=== PATIENT | female | born 1995 | race Caucasian/White ===

== ENCOUNTER 2019-02-10 14:00 | Inpatient (IN) | payer MEDICAID ==
[~2019-02-10] VITALS: Ht 165.1 cm; Wt 116.1 kg
[2019-02-10] MEDS ORDERED: RISP2 PO (15:58)
[2019-02-10] MEDS ORDERED: RISP4 PO (15:58)
[2019-02-10] MEDS ORDERED: LORazepam 2 MG TABLET PO PRN (16:30)
[2019-02-10] MEDS ORDERED: HALOPERIDOL 5 MG TABLET PO PRN (16:30)
[2019-02-10 16:41] VITALS: BP 134/90
[2019-02-10] MEDS ORDERED: PNEUMOCOCCAL VACCINE POLYVALENT 0.5 ML VIAL [PPSV23] IM ONE (17:15)
[2019-02-10 17:27] VITALS: BP 133/73
[2019-02-10] MEDS ORDERED: LOPERAMIDE HCL 2 MG CAPSULE PO PRN (19:00)
[2019-02-10] MEDS ORDERED: DOCUSATE SODIUM 100 MG CAPSULE PO PRN (19:00)
[2019-02-10] MEDS ORDERED: MAG HYDROX/AL HYDROX/SIMETH ES 30 ML SUSPENSION UDCUP PO PRN (19:00)
[2019-02-10] MEDS ORDERED: MAGNESIUM HYDROXIDE SUSPENSION 30 ML UDCUP PO PRN (19:00)
[2019-02-10] MEDS ORDERED: IBUPROFEN 400 MG TABLET PO PRN (19:00)
[2019-02-10] MEDS ORDERED: PETROLATUM,WHITE 28 GM JELLY TP PRN (19:00)
[2019-02-10] MEDS ORDERED: CloNIDine HCL 0.1 MG TABLET PO PRN (19:00)
[2019-02-10] MEDS ORDERED: ACETAMINOPHEN 325 MG TABLET PO PRN (19:00)
[2019-02-10] MEDS ORDERED: GuaiFENesin/D-METHORPHAN [SUGAR-FREE] 200-20MG/10 ML SYRUP UDCUP PO PRN (19:00)
[2019-02-10] MEDS ORDERED: ONDANSETRON HCL 4 MG TABLET PO PRN (19:00)
[2019-02-10] MEDS ORDERED: NICOTINE 14 MG/24 HOUR PATCH TD PRN (19:00)
[2019-02-10] MEDS: ZOLPIDEM TARTRATE 10 MG TABLET PO PRN (21:11)
[2019-02-11 00:46] VITALS: BP 122/83
[2019-02-11 08:09] LABS: BASOPHILS % (AUTO) 0.3 % (0.0-2.0); HEMOGLOBIN 13.3 g/dL (12.0-16.0); LYMPHOCYTES # (AUTO) 1.5 K/uL (1.0-4.8); LYMPHOCYTES % (AUTO) 17.7 % (22.0-44.0); MEAN CORPUSCULAR HEMOGLOBIN 29.3 pg (26.0-34.0); MEAN CORPUSCULAR HGB CONC 32.3 G/dL (31.0-37.0); MEAN CORPUSCULAR VOLUME 91 fL (80-100); MONOCYTES # (AUTO) 0.7 K/uL (0.1-1.0); MONOCYTES % (AUTO) 8.7 % (2.0-9.0); NEUTROPHILS # (AUTO) 5.9 K/uL (1.8-7.7); NEUTROPHILS % (AUTO) 71.3 % (40.0-70.0); PLATELET COUNT (AUTO) 289 K/uL (150-450); RED BLOOD CELL COUNT(AUTO) 4.52 MIL/uL (4.00-5.20); RED CELL DISTRIBUTION WIDTH 13.7 % (11.5-14.5)
[2019-02-11 08:13] VITALS: BP 116/63
[2019-02-11 08:33] LABS: HEMOGLOBIN A1C 5.7 % (4.5-6.2)
[2019-02-11 08:41] LABS: ALANINE AMINOTRANSFERASE 16 U/L (12-78); ALBUMIN 3.5 g/dL (3.4-5.0); ALKALINE PHOSPHATASE 171 U/L (46-116); ANION GAP 4 mmol/L (8-16); ASPARTATE AMINOTRANSFERASE 10 U/L (15-37); BILIRUBIN,TOTAL 0.5 mg/dL (0.1-1.0); CALCIUM, TOTAL 9.2 mg/dL (8.8-10.5); CARBON DIOXIDE 28 mmol/L (22-29); CHLORIDE 105 mmol/L (98-107); CHOL/HDL RATIO 4.1 (3.9-5.7); CHOLESTEROL 112 mg/dL (131-200); CREATININE 0.74 mg/dL (0.60-1.30); FREE T4 (FREE THYROXINE) 1.18 ng/dL (0.76-1.46); GLOMERULAR FILTR. RATE CALC > 60 mL/min (>60); GLUCOSE,RANDOM 85 mg/dL (70-110); HCG,QUANTITATIVE < 1 mIU/mL (0-6); HDL CHOLESTEROL 27 mg/dL (40-60); LDL CHOL (CALC.) 77 mg/dL (0-130); POTASSIUM 3.9 mmol/L (3.5-5.1); SODIUM SERUM 137 mmol/L (136-145); THYROID STIMULATING HORMONE 2.16 uIU/mL (0.36-3.74); TOTAL PROTEIN, SERUM 7.3 g/dL (6.4-8.2); TRIGLYCERIDES 40 mg/dL (15-150); UREA NITROGEN, BLOOD 9 mg/dL (7-18)
[2019-02-11] MEDS: RisperiDONE 2 MG TABLET PO SCH (12:07)
[2019-02-11 16:31] VITALS: BP 127/67
[2019-02-11] MEDS: RisperiDONE 4 MG TABLET PO SCH (20:16)
[2019-02-11] MEDS: ZOLPIDEM TARTRATE 10 MG TABLET PO PRN (20:17)
[2019-02-12 03:56] VITALS: BP 132/78
[2019-02-12 08:06] VITALS: BP 141/89
[2019-02-12] MEDS: RisperiDONE 2 MG TABLET PO SCH (08:06)
[2019-02-12 16:17] VITALS: BP 117/82
[2019-02-12] MEDS: RisperiDONE 4 MG TABLET PO SCH (20:30)
[2019-02-13 00:29] VITALS: BP 126/80
[2019-02-13] MEDS: ZOLPIDEM TARTRATE 10 MG TABLET PO PRN ×2 (00:29→21:26)
[2019-02-13 08:36] VITALS: BP 123/72
[2019-02-13] MEDS: RisperiDONE 2 MG TABLET PO SCH (08:53)
[2019-02-13 16:20] VITALS: BP 106/64
[2019-02-13] MEDS: ALBUTEROL SULFATE HFA 90 MCG/PUFF 8 GM INHALER IH PRN (19:34)
[2019-02-13] MEDS: RisperiDONE 4 MG TABLET PO SCH (20:29)
[2019-02-14 04:28] VITALS: BP 118/72
[2019-02-14 08:17] VITALS: BP 132/80
[2019-02-14] MEDS: RisperiDONE 2 MG TABLET PO SCH (08:47)
[2019-02-14] MEDS: ALBUTEROL SULFATE HFA 90 MCG/PUFF 8 GM INHALER IH PRN (09:45)
[2019-02-14] MEDS ORDERED: RISP2TAB22 PO ×2 (10:46→10:47)
[2019-02-14] MEDS ORDERED: RISP4TAB16 PO (10:48)
== END 2019-02-14 13:45 | disposition home or self-care (01) | DRG 753 ==
LOC: B2S 16:43
PROVIDERS: ADMIT Psychiatry & Neurology Child & Adolescent Psychiatry; ATTEND Psychiatry & Neurology Child & Adolescent Psychiatry
DX: F31.2 Bipolar disorder, current episode manic severe with psychotic features (principal); R00.0 Tachycardia, unspecified; F19.10 Other psychoactive substance abuse, uncomplicated; F31.9 Bipolar disorder, unspecified; J45.909 Unspecified asthma, uncomplicated; R45.87 Impulsiveness; Z79.899 Other long term (current) drug therapy
CPT/HCPCS: 83036; 84439; 84443; J3535

== ENCOUNTER 2019-10-10 12:27 | Inpatient (IN) | payer MEDICAID ==
[~2019-10-10] VITALS: Ht 170.2 cm; Wt 88.3 kg
[~2019-10-10 12:27] MED LIST: RISP2TAB22 PO; RISP4TAB16 PO
[2019-10-11] MEDS ORDERED: LORazepam 2 MG TABLET PO PRN (14:15)
[2019-10-11] MEDS ORDERED: HALOPERIDOL 5 MG TABLET PO PRN (14:15)
[2019-10-11 15:12] VITALS: BP 105/60
[2019-10-11] MEDS ORDERED: PERMETHRIN 5% 60 GM CREAM TP ONE (15:45)
[2019-10-11] MEDS ORDERED: INFLUENZA VIRUS VACCINE QVS 2019-20 (3YR+)/PF 60 MCG/0.5 ML SYRINGE IM ONE (16:00)
[2019-10-11 16:39] VITALS: BP 108/67
[2019-10-11] MEDS ORDERED: ONDANSETRON HCL 4 MG TABLET PO PRN (18:30)
[2019-10-11] MEDS ORDERED: ACETAMINOPHEN 325 MG TABLET PO PRN (18:30)
[2019-10-11] MEDS ORDERED: MAGNESIUM HYDROXIDE SUSPENSION 30 ML UDCUP PO PRN (18:30)
[2019-10-11] MEDS ORDERED: DOCUSATE SODIUM 100 MG CAPSULE PO PRN (18:30)
[2019-10-11] MEDS ORDERED: PETROLATUM,WHITE 28 GM JELLY TP PRN (18:30)
[2019-10-11] MEDS ORDERED: MAG HYDROX/AL HYDROX/SIMETH ES 30 ML SUSPENSION UDCUP PO PRN (18:30)
[2019-10-11] MEDS ORDERED: LOPERAMIDE HCL 2 MG CAPSULE PO PRN (18:30)
[2019-10-11] MEDS ORDERED: ALBUTEROL SULFATE HFA 90 MCG/PUFF 8 GM INHALER IH PRN (18:30)
[2019-10-11] MEDS ORDERED: NICOTINE 14 MG/24 HOUR PATCH TD PRN (18:30)
[2019-10-11] MEDS ORDERED: GuaiFENesin/D-METHORPHAN [SUGAR-FREE] 200-20MG/10 ML SYRUP UDCUP PO PRN (18:30)
[2019-10-11] MEDS ORDERED: CloNIDine HCL 0.1 MG TABLET PO PRN (18:30)
[2019-10-11] MEDS ORDERED: IBUPROFEN 400 MG TABLET PO PRN (18:30)
[2019-10-11] MEDS ORDERED: ZOLPIDEM TARTRATE 5 MG TABLET PO SCH (21:00)
[2019-10-11] MEDS ORDERED: ZOLPIDEM TARTRATE 5 MG TABLET PO PRN (21:00)
[2019-10-12 00:33] VITALS: BP 112/60
[2019-10-12 06:34] VITALS: BP 112/61
[2019-10-12 08:21] VITALS: BP 111/67
[2019-10-12 16:20] VITALS: BP 117/73
[2019-10-12] MEDS ORDERED: ONDANSETRON HCL 4 MG TABLET PO PRN (20:00)
[2019-10-12] MEDS ORDERED: ACETAMINOPHEN 325 MG TABLET PO PRN (20:00)
[2019-10-12] MEDS ORDERED: GuaiFENesin/D-METHORPHAN [SUGAR-FREE] 200-20MG/10 ML SYRUP UDCUP PO PRN (20:00)
[2019-10-12] MEDS ORDERED: MAGNESIUM HYDROXIDE SUSPENSION 30 ML UDCUP PO PRN (20:00)
[2019-10-12] MEDS ORDERED: MAG HYDROX/AL HYDROX/SIMETH ES 30 ML SUSPENSION UDCUP PO PRN (20:00)
[2019-10-12] MEDS ORDERED: PETROLATUM,WHITE 28 GM JELLY TP PRN (20:00)
[2019-10-12] MEDS ORDERED: NICOTINE 14 MG/24 HOUR PATCH TD PRN (20:00)
[2019-10-12] MEDS ORDERED: IBUPROFEN 400 MG TABLET PO PRN (20:00)
[2019-10-12] MEDS ORDERED: DOCUSATE SODIUM 100 MG CAPSULE PO PRN (20:00)
[2019-10-12] MEDS ORDERED: ALBUTEROL SULFATE HFA 90 MCG/PUFF 8 GM INHALER IH PRN (20:00)
[2019-10-12] MEDS ORDERED: LOPERAMIDE HCL 2 MG CAPSULE PO PRN (20:00)
[2019-10-12] MEDS ORDERED: CloNIDine HCL 0.1 MG TABLET PO PRN (20:00)
[2019-10-12] MEDS: RisperiDONE 2 MG TABLET PO SCH (20:52)
[2019-10-13 01:09] VITALS: BP 111/64
[2019-10-13 08:10] LABS: BASOPHILS % (AUTO) 0.3 % (0.0-2.0); EOSINOPHILS % (AUTO) 4.7 % (1.0-6.0); HEMATOCRIT 42.6 % (36-46); HEMOGLOBIN 14.3 g/dL (12.0-16.0); LYMPHOCYTES # (AUTO) 1.6 K/uL (1.0-4.8); LYMPHOCYTES % (AUTO) 23.2 % (22.0-44.0); MEAN CORPUSCULAR HEMOGLOBIN 30.5 pg (26.0-34.0); MEAN CORPUSCULAR HGB CONC 33.5 G/dL (31.0-37.0); MEAN CORPUSCULAR VOLUME 91 fL (80-100); MONOCYTES # (AUTO) 0.9 K/uL (0.1-1.0); MONOCYTES % (AUTO) 13.9 % (2.0-9.0); NEUTROPHILS # (AUTO) 3.9 K/uL (1.8-7.7); NEUTROPHILS % (AUTO) 57.9 % (40.0-70.0); PLATELET COUNT (AUTO) 241 K/uL (150-450); RED BLOOD CELL COUNT(AUTO) 4.68 MIL/uL (4.00-5.20); RED CELL DISTRIBUTION WIDTH 13.8 % (11.5-14.5)
[2019-10-13] MEDS: RisperiDONE 2 MG TABLET PO SCH ×2 (08:20→20:34)
[2019-10-13 08:24] VITALS: BP 106/58
[2019-10-13 08:26] LABS: HEMOGLOBIN A1C 5.1 % (3.8-5.6)
[2019-10-13 08:37] LABS: ALANINE AMINOTRANSFERASE 32 U/L (12-78); ALBUMIN 3.4 g/dL (3.4-5.0); ALKALINE PHOSPHATASE 119 U/L (46-116); ANION GAP 10 mmol/L (8-16); ASPARTATE AMINOTRANSFERASE 19 U/L (15-37); BILIRUBIN,TOTAL 0.2 mg/dL (0.1-1.0); CARBON DIOXIDE 27 mmol/L (22-29); CHLORIDE 103 mmol/L (98-107); CHOL/HDL RATIO 4.4 (3.9-5.7); CHOLESTEROL 128 mg/dL (131-200); CREATININE 0.66 mg/dL (0.60-1.30); GLOMERULAR FILTR. RATE CALC > 60 mL/min (>60); GLUCOSE,RANDOM 87 mg/dL (70-110); HDL CHOLESTEROL 29 mg/dL (40-60); LDL CHOL (CALC.) 75 mg/dL (0-130); POTASSIUM 3.5 mmol/L (3.5-5.1); SODIUM SERUM 140 mmol/L (136-145); TOTAL PROTEIN, SERUM 6.2 g/dL (6.4-8.2); TRIGLYCERIDES 119 mg/dL (15-150); UREA NITROGEN, BLOOD 9 mg/dL (7-18)
[2019-10-13 17:38] VITALS: BP 130/70
[2019-10-14 03:44] VITALS: BP 114/81
[2019-10-14 08:14] VITALS: BP 106/62
[2019-10-14] MEDS: RisperiDONE 2 MG TABLET PO SCH ×2 (08:52→20:15)
[2019-10-14 16:00] VITALS: BP 123/79
[2019-10-15 01:34] VITALS: BP 112/64
[2019-10-15 08:25] VITALS: BP 106/68
[2019-10-15] MEDS: RisperiDONE 2 MG TABLET PO SCH ×2 (08:56→20:17)
[2019-10-15 17:30] VITALS: BP 111/70
[2019-10-16 00:10] VITALS: BP 103/73
[2019-10-16 08:09] VITALS: BP 103/60
[2019-10-16] MEDS: RisperiDONE 2 MG TABLET PO SCH ×2 (09:05→20:16)
[2019-10-16 19:01] VITALS: BP 121/71
[2019-10-17 05:39] VITALS: BP 118/72
[2019-10-17] MEDS: RisperiDONE 2 MG TABLET PO SCH (08:51)
[2019-10-17 09:09] VITALS: BP 118/74
[2019-10-17] MEDS ORDERED: PALIPERIDONE PALMITATE 234 MG/1.5 ML SYRINGE IM ONE (11:15)
[2019-10-17 16:40] VITALS: BP 104/63
[2019-10-17] MEDS: RisperiDONE 4 MG TABLET PO SCH (20:53)
[2019-10-18 02:45] VITALS: BP 106/68
[2019-10-18] MEDS: RisperiDONE 2 MG TABLET PO SCH (08:50)
[2019-10-18 10:09] VITALS: BP 112/58
[2019-10-18 16:36] VITALS: BP 110/60
[2019-10-18] MEDS: RisperiDONE 4 MG TABLET PO SCH (20:13)
[2019-10-19 00:09] VITALS: BP 108/62
[2019-10-19] MEDS: RisperiDONE 2 MG TABLET PO SCH (08:45)
[2019-10-19 09:45] VITALS: BP 120/63
[2019-10-19 16:30] VITALS: BP 109/70
[2019-10-19] MEDS: RisperiDONE 4 MG TABLET PO SCH (20:35)
[2019-10-20 01:25] VITALS: BP 117/77
[2019-10-20 08:06] VITALS: BP 126/62
[2019-10-20] MEDS: RisperiDONE 2 MG TABLET PO SCH (08:35)
[2019-10-20] MEDS ORDERED: PALIPERIDONE PALMITATE 234 MG/1.5 ML SYRINGE IM ONE (10:00)
[2019-10-20 16:20] VITALS: BP 106/60
[2019-10-20] MEDS: RisperiDONE 4 MG TABLET PO SCH (20:05)
[2019-10-21 01:01] VITALS: BP 109/69
[2019-10-21] MEDS: RisperiDONE 2 MG TABLET PO SCH (08:48)
[2019-10-21 08:58] VITALS: BP 111/59
[2019-10-21] MEDS ORDERED: PALIPERIDONE PALMITATE 156 MG/ML SYRINGE IM ONE (09:00)
[2019-10-21 16:38] VITALS: BP 105/71
[2019-10-21] MEDS: RisperiDONE 4 MG TABLET PO SCH (20:32)
[2019-10-22 00:29] VITALS: BP 130/72
[2019-10-22] MEDS: RisperiDONE 2 MG TABLET PO SCH (08:52)
[2019-10-22 08:57] VITALS: BP 104/54
[2019-10-22 16:11] VITALS: BP 106/65
[2019-10-22] MEDS: RisperiDONE 4 MG TABLET PO SCH (20:09)
[2019-10-23 01:56] VITALS: BP 138/88
[2019-10-23 08:00] VITALS: BP 117/65
[2019-10-23] MEDS: RisperiDONE 2 MG TABLET PO SCH (08:32)
[2019-10-23 16:11] VITALS: BP 109/71
[2019-10-23] MEDS: RisperiDONE 4 MG TABLET PO SCH (20:01)
[2019-10-24 02:30] VITALS: BP 119/59
[2019-10-24] MEDS ORDERED: PALIPERIDONE PALMITATE 156 MG/ML SYRINGE IM ONE (09:00)
[2019-10-24] MEDS: RisperiDONE 2 MG TABLET PO SCH (09:07)
[2019-10-24 09:54] VITALS: BP 105/63
[2019-10-24 13:02] VITALS: BP 122/99
[2019-10-24 16:23] VITALS: BP 142/62
[2019-10-24] MEDS: RisperiDONE 4 MG TABLET PO SCH (21:06)
[2019-10-25 01:15] VITALS: BP 128/70
[2019-10-25 08:30] VITALS: BP 117/65
[2019-10-25] MEDS: RisperiDONE 2 MG TABLET PO SCH (08:44)
[2019-10-25] MEDS: LORazepam 2 MG TABLET PO PRN (12:11)
[2019-10-25 16:40] VITALS: BP 101/52
[2019-10-25] MEDS: RisperiDONE 4 MG TABLET PO SCH (20:45)
[2019-10-26 00:04] VITALS: BP 99/60
[2019-10-26] MEDS: RisperiDONE 2 MG TABLET PO SCH (08:10)
[2019-10-26 08:19] VITALS: BP 103/63
[2019-10-26] MEDS: LORazepam 2 MG TABLET PO PRN (14:42)
[2019-10-26 16:15] VITALS: BP 102/61
[2019-10-26] MEDS: RisperiDONE 4 MG TABLET PO SCH (20:09)
[2019-10-27 00:30] VITALS: BP 127/65
[2019-10-27 08:23] VITALS: BP 90/50
[2019-10-27] MEDS: RisperiDONE 2 MG TABLET PO SCH (08:39)
[2019-10-27 09:01] VITALS: BP 125/66
[2019-10-27 16:09] VITALS: BP 109/70
[2019-10-27] MEDS: RisperiDONE 4 MG TABLET PO SCH (20:24)
[2019-10-28 01:45] VITALS: BP 128/66
[2019-10-28] MEDS: RisperiDONE 2 MG TABLET PO SCH (08:26)
[2019-10-28] MEDS ORDERED: RISP4 PO (11:52)
[2019-10-28] MEDS ORDERED: RISP2 PO (11:52)
[2019-10-28] MEDS ORDERED: PALI234D IM (11:52)
[2019-11-21] MEDS ORDERED: PALIPERIDONE PALMITATE 234 MG/1.5 ML SYRINGE IM SCH (09:00)
== END 2019-10-28 13:07 | disposition home or self-care (01) | DRG 750 ==
LOC: B2S 10-11 14:19
DX: F25.0 Schizoaffective disorder, bipolar type (principal); R45.851 Suicidal ideations; F12.10 Cannabis abuse, uncomplicated; F10.10 Alcohol abuse, uncomplicated; B86 Scabies; F15.10 Other stimulant abuse, uncomplicated; K59.00 Constipation, unspecified; J45.909 Unspecified asthma, uncomplicated; Z71.41 Alcohol abuse counseling and surveillance of alcoholic; Z79.899 Other long term (current) drug therapy; Z59.0 Homelessness; Z71.51 Drug abuse counseling and surveillance of drug abuser
CPT/HCPCS: 83036; 84443; 87081; Q0162

== ENCOUNTER 2020-01-10 14:46 | Inpatient (IN) | payer MEDICARE, MEDICAID ==
[~2020-01-10] VITALS: Ht 172.7 cm; Wt 76.4 kg
[~2020-01-10 14:46] MED LIST changes: +PALI234D IM; +RISP2TAB23 PO; +RISP4TAB73 PO
[2020-01-11 00:46] VITALS: BP 102/66
[2020-01-11] MEDS: ZOLPIDEM TARTRATE 10 MG TABLET PO PRN (01:38)
[2020-01-11 07:51] LABS: BASOPHILS % (AUTO) 0.3 % (0.0-2.0); HEMATOCRIT 42.3 % (36-46); MEAN CORPUSCULAR HGB CONC 33.1 G/dL (31.0-37.0); MEAN CORPUSCULAR VOLUME 94 fL (80-100); MONOCYTES # (AUTO) 0.6 K/uL (0.1-1.0); NEUTROPHILS # (AUTO) 4.1 K/uL (1.8-7.7); NEUTROPHILS % (AUTO) 57.7 % (40.0-70.0); PLATELET COUNT (AUTO) 281 K/uL (150-450); RED BLOOD CELL COUNT(AUTO) 4.53 MIL/uL (4.00-5.20); RED CELL DISTRIBUTION WIDTH 12.7 % (11.5-14.5)
[2020-01-11] MEDS ORDERED: ONDANSETRON HCL 4 MG TABLET PO PRN (08:15)
[2020-01-11] MEDS ORDERED: CloNIDine HCL 0.1 MG TABLET PO PRN (08:15)
[2020-01-11] MEDS ORDERED: DOCUSATE SODIUM 100 MG CAPSULE PO PRN (08:15)
[2020-01-11] MEDS ORDERED: MAG HYDROX/AL HYDROX/SIMETH ES 30 ML SUSPENSION UDCUP PO PRN (08:15)
[2020-01-11] MEDS ORDERED: PETROLATUM,WHITE 28 GM JELLY TP PRN (08:15)
[2020-01-11] MEDS ORDERED: ALBUTEROL SULFATE HFA 90 MCG/PUFF 8 GM INHALER IH PRN (08:15)
[2020-01-11] MEDS ORDERED: GuaiFENesin/D-METHORPHAN [SUGAR-FREE] 200-20MG/10 ML SYRUP UDCUP PO PRN (08:15)
[2020-01-11] MEDS ORDERED: MAGNESIUM HYDROXIDE SUSPENSION 30 ML UDCUP PO PRN (08:15)
[2020-01-11] MEDS ORDERED: NICOTINE 14 MG/24 HOUR PATCH TD PRN (08:15)
[2020-01-11] MEDS ORDERED: LOPERAMIDE HCL 2 MG CAPSULE PO PRN (08:15)
[2020-01-11] MEDS ORDERED: ACETAMINOPHEN 325 MG TABLET PO PRN (08:15)
[2020-01-11 08:24] VITALS: BP 119/97
[2020-01-11 08:30] LABS: ALANINE AMINOTRANSFERASE 18 U/L (12-78); ALBUMIN 3.1 g/dL (3.4-5.0); ALKALINE PHOSPHATASE 126 U/L (46-116); ANION GAP 7 mmol/L (8-16); ASPARTATE AMINOTRANSFERASE 10 U/L (15-37); BILIRUBIN,TOTAL 0.3 mg/dL (0.1-1.0); CALCIUM, TOTAL 8.6 mg/dL (8.8-10.5); CARBON DIOXIDE 27 mmol/L (22-29); CHLORIDE 105 mmol/L (98-107); CHOL/HDL RATIO 3.7 (3.9-5.7); CHOLESTEROL 111 mg/dL (131-200); CREATININE 0.67 mg/dL (0.60-1.30); GLOMERULAR FILTR. RATE CALC > 60 mL/min (>60); GLUCOSE,RANDOM 81 mg/dL (70-110); HCG,QUANTITATIVE < 1 mIU/mL (0-6); HDL CHOLESTEROL 30 mg/dL (40-60); LDL CHOL (CALC.) 65 mg/dL (0-130); POTASSIUM 3.8 mmol/L (3.5-5.1); SODIUM SERUM 139 mmol/L (136-145); THYROID STIMULATING HORMONE 0.77 uIU/mL (0.36-3.74); TOTAL PROTEIN, SERUM 6.7 g/dL (6.4-8.2); TRIGLYCERIDES 81 mg/dL (15-150); UREA NITROGEN, BLOOD 8 mg/dL (7-18)
[2020-01-11 16:38] VITALS: BP 114/63
[2020-01-11] MEDS: RisperiDONE 4 MG TABLET PO SCH (20:38)
[2020-01-12 08:19] VITALS: BP_SYST 102; BP_SYST 110; BP_DIAS 58; BP_DIAS 78
[2020-01-12] MEDS: RisperiDONE 2 MG TABLET PO SCH (09:24)
[2020-01-12 16:13] VITALS: BP 137/94
[2020-01-12] MEDS: RisperiDONE 4 MG TABLET PO SCH (20:38)
[2020-01-13] MEDS: RisperiDONE 2 MG TABLET PO SCH (08:32)
[2020-01-13 08:52] VITALS: BP 109/69
[2020-01-13 16:11] VITALS: BP 110/76
[2020-01-13] MEDS: RisperiDONE 4 MG TABLET PO SCH (20:33)
[2020-01-14 01:55] VITALS: BP 112/78
[2020-01-14 08:33] VITALS: BP 113/69
[2020-01-14] MEDS: RisperiDONE 2 MG TABLET PO SCH (08:49)
[2020-01-14 16:40] VITALS: BP 103/62
[2020-01-14] MEDS: RisperiDONE 4 MG TABLET PO SCH (20:59)
[2020-01-15 01:12] VITALS: BP 119/83
[2020-01-15] MEDS: RisperiDONE 2 MG TABLET PO SCH (08:41)
[2020-01-15 09:00] VITALS: BP 107/60
[2020-01-15 17:22] VITALS: BP 99/67
[2020-01-15] MEDS: RisperiDONE 4 MG TABLET PO SCH (20:25)
[2020-01-15] MEDS: ZOLPIDEM TARTRATE 10 MG TABLET PO PRN (23:24)
[2020-01-16 00:04] VITALS: BP 118/85
[2020-01-16 08:18] VITALS: BP 121/71
[2020-01-16] MEDS: RisperiDONE 2 MG TABLET PO SCH (08:43)
[2020-01-16 16:08] VITALS: BP 124/63
[2020-01-16] MEDS: LORazepam 2 MG TABLET PO PRN (18:27)
[2020-01-16] MEDS: RisperiDONE 4 MG TABLET PO SCH (20:14)
[2020-01-17 02:36] VITALS: BP 118/79
[2020-01-17 08:24] VITALS: BP 114/60
[2020-01-17] MEDS: RisperiDONE 2 MG TABLET PO SCH (09:19)
[2020-01-17 16:10] VITALS: BP 133/90
[2020-01-17] MEDS: LORazepam 2 MG TABLET PO PRN (18:36)
[2020-01-17] MEDS: RisperiDONE 4 MG TABLET PO SCH (20:30)
[2020-01-18 00:08] VITALS: BP 128/77
[2020-01-18 08:07] VITALS: BP 131/74
[2020-01-18] MEDS: RisperiDONE 2 MG TABLET PO SCH (08:09)
[2020-01-18 16:20] VITALS: BP 103/54
[2020-01-18 20:30] VITALS: BP 114/72
[2020-01-18] MEDS: LORazepam 2 MG TABLET PO PRN (20:34)
[2020-01-18] MEDS: RisperiDONE 4 MG TABLET PO SCH (20:34)
[2020-01-19 00:20] VITALS: BP 112/65
[2020-01-19 08:11] VITALS: BP 110/61
[2020-01-19] MEDS: RisperiDONE 2 MG TABLET PO SCH (08:39)
[2020-01-19 16:19] VITALS: BP 109/68
[2020-01-19] MEDS: LORazepam 2 MG TABLET PO PRN (19:25)
[2020-01-19] MEDS: RisperiDONE 4 MG TABLET PO SCH (20:22)
[2020-01-20 01:27] VITALS: BP 116/71
[2020-01-20 08:40] VITALS: BP 107/73
[2020-01-20] MEDS: RisperiDONE 2 MG TABLET PO SCH (08:44)
[2020-01-20] MEDS ORDERED: TUBERCULIN, PURIFIED PROTEIN DERIVATIVE 5 TU/0.1 ML SYRINGE ID ONE (11:15)
[2020-01-20] MEDS: LORazepam 2 MG TABLET PO PRN (16:12)
[2020-01-20 16:56] VITALS: BP 124/64
[2020-01-20] MEDS: RisperiDONE 4 MG TABLET PO SCH (20:08)
[2020-01-21 01:17] VITALS: BP 113/71
[2020-01-21] MEDS: RisperiDONE 2 MG TABLET PO SCH (09:31)
[2020-01-21 10:53] VITALS: BP 106/63
[2020-01-21 17:22] VITALS: BP 107/57
[2020-01-21] MEDS: LORazepam 2 MG TABLET PO PRN (19:48)
[2020-01-21] MEDS: RisperiDONE 4 MG TABLET PO SCH (20:27)
[2020-01-22 06:56] VITALS: BP 107/69
[2020-01-22 08:15] VITALS: BP 110/67
[2020-01-22] MEDS: RisperiDONE 2 MG TABLET PO SCH (09:49)
[2020-01-22 16:31] VITALS: BP 109/64
[2020-01-22] MEDS: RisperiDONE 4 MG TABLET PO SCH (20:38)
[2020-01-22] MEDS: LORazepam 2 MG TABLET PO PRN (23:51)
[2020-01-23 01:20] VITALS: BP 126/80
[2020-01-23 08:46] VITALS: BP 121/90
[2020-01-23] MEDS: RisperiDONE 2 MG TABLET PO SCH (09:49)
[2020-01-23 16:12] VITALS: BP 120/79
[2020-01-23] MEDS: RisperiDONE 4 MG TABLET PO SCH (20:29)
[2020-01-23] MEDS: LORazepam 2 MG TABLET PO PRN (21:08)
[2020-01-23] MEDS: ZOLPIDEM TARTRATE 10 MG TABLET PO PRN (22:01)
[2020-01-24 06:22] VITALS: BP 123/57
[2020-01-24] MEDS: OMEGA-3/DHA/EPA/FISH OIL 1,000 MG CAPSULE PO SCH (08:29)
[2020-01-24] MEDS: RisperiDONE 2 MG TABLET PO SCH (08:29)
[2020-01-24 08:42] VITALS: BP 119/61
[2020-01-24 16:20] VITALS: BP 120/78
[2020-01-24] MEDS: LORazepam 2 MG TABLET PO PRN (18:16)
[2020-01-24] MEDS: RisperiDONE 4 MG TABLET PO SCH (20:31)
[2020-01-24] MEDS: ZOLPIDEM TARTRATE 10 MG TABLET PO PRN (22:28)
[2020-01-25 01:04] VITALS: BP 118/69
[2020-01-25 08:03] VITALS: BP 106/58
[2020-01-25] MEDS: RisperiDONE 2 MG TABLET PO SCH (08:31)
[2020-01-25] MEDS: OMEGA-3/DHA/EPA/FISH OIL 1,000 MG CAPSULE PO SCH (08:31)
[2020-01-25 16:16] VITALS: BP 123/76
[2020-01-25] MEDS: LORazepam 2 MG TABLET PO PRN (18:24)
[2020-01-25] MEDS: RisperiDONE 4 MG TABLET PO SCH (20:02)
[2020-01-26 01:50] VITALS: BP 96/61
[2020-01-26 08:05] VITALS: BP 106/63
[2020-01-26] MEDS: RisperiDONE 2 MG TABLET PO SCH (08:56)
[2020-01-26] MEDS: OMEGA-3/DHA/EPA/FISH OIL 1,000 MG CAPSULE PO SCH (08:56)
[2020-01-26 16:14] VITALS: BP 114/79
[2020-01-26] MEDS: LORazepam 2 MG TABLET PO PRN (20:01)
[2020-01-26] MEDS: RisperiDONE 4 MG TABLET PO SCH (20:39)
[2020-01-27 05:48] VITALS: BP 103/64
[2020-01-27] MEDS: OMEGA-3/DHA/EPA/FISH OIL 1,000 MG CAPSULE PO SCH (08:19)
[2020-01-27] MEDS: RisperiDONE 2 MG TABLET PO SCH (08:19)
[2020-01-27] MEDS: NICOTINE 14 MG/24 HOUR PATCH TD SCH (08:21)
[2020-01-27 08:26] VITALS: BP 108/67
[2020-01-27] MEDS: LORazepam 2 MG TABLET PO PRN ×2 (14:05→18:33)
[2020-01-27 16:00] VITALS: BP 106/70
[2020-01-27] MEDS: RisperiDONE 4 MG TABLET PO SCH (20:31)
[2020-01-28 00:12] VITALS: BP 118/75
[2020-01-28 08:13] VITALS: BP 100/63
[2020-01-28] MEDS: NICOTINE 14 MG/24 HOUR PATCH TD SCH (08:48)
[2020-01-28] MEDS: RisperiDONE 2 MG TABLET PO SCH (08:48)
[2020-01-28] MEDS: OMEGA-3/DHA/EPA/FISH OIL 1,000 MG CAPSULE PO SCH (10:04)
[2020-01-28] MEDS: LORazepam 2 MG TABLET PO PRN ×2 (15:54→21:15)
[2020-01-28 16:25] VITALS: BP 108/76
[2020-01-28] MEDS: RisperiDONE 4 MG TABLET PO SCH (20:48)
[2020-01-29 05:55] VITALS: BP 105/70
[2020-01-29 08:09] VITALS: BP 102/64
[2020-01-29] MEDS: OMEGA-3/DHA/EPA/FISH OIL 1,000 MG CAPSULE PO SCH (08:35)
[2020-01-29] MEDS: RisperiDONE 2 MG TABLET PO SCH (08:35)
[2020-01-29] MEDS: NICOTINE 14 MG/24 HOUR PATCH TD SCH (08:36)
[2020-01-29] MEDS: LORazepam 2 MG TABLET PO PRN ×3 (13:33→21:44)
[2020-01-29 16:05] VITALS: BP 110/63
[2020-01-29] MEDS: RisperiDONE 4 MG TABLET PO SCH (20:14)
[2020-01-30 00:38] VITALS: BP 111/66
[2020-01-30] MEDS: RisperiDONE 2 MG TABLET PO SCH (08:12)
[2020-01-30] MEDS: OMEGA-3/DHA/EPA/FISH OIL 1,000 MG CAPSULE PO SCH (08:12)
[2020-01-30] MEDS: NICOTINE 14 MG/24 HOUR PATCH TD SCH (08:13)
[2020-01-30 08:18] VITALS: BP 112/68
[2020-01-30] MEDS: LORazepam 2 MG TABLET PO PRN ×3 (13:46→23:11)
[2020-01-30 16:18] VITALS: BP 106/62
[2020-01-30] MEDS: RisperiDONE 4 MG TABLET PO SCH (20:50)
[2020-01-31 00:08] VITALS: BP 110/70
[2020-01-31] MEDS: OMEGA-3/DHA/EPA/FISH OIL 1,000 MG CAPSULE PO SCH (08:33)
[2020-01-31] MEDS: NICOTINE 14 MG/24 HOUR PATCH TD SCH (08:33)
[2020-01-31] MEDS: RisperiDONE 2 MG TABLET PO SCH (08:33)
[2020-01-31 08:34] VITALS: BP 110/83
[2020-01-31] MEDS: LORazepam 2 MG TABLET PO PRN ×2 (14:48→19:14)
[2020-01-31 18:05] VITALS: BP 110/72
[2020-01-31] MEDS: RisperiDONE 4 MG TABLET PO SCH (20:37)
[2020-02-01 00:25] VITALS: BP 112/78
[2020-02-01] MEDS: NICOTINE 14 MG/24 HOUR PATCH TD SCH (08:35)
[2020-02-01] MEDS: OMEGA-3/DHA/EPA/FISH OIL 1,000 MG CAPSULE PO SCH (08:35)
[2020-02-01] MEDS: RisperiDONE 2 MG TABLET PO SCH (08:35)
[2020-02-01 08:40] VITALS: BP 110/78
[2020-02-01] MEDS: LORazepam 2 MG TABLET PO PRN ×2 (13:05→17:27)
[2020-02-01 16:18] VITALS: BP 135/71
[2020-02-01] MEDS: RisperiDONE 4 MG TABLET PO SCH (20:41)
[2020-02-02 01:09] VITALS: BP 118/80
[2020-02-02] MEDS: ZOLPIDEM TARTRATE 10 MG TABLET PO PRN ×2 (02:50→22:58)
[2020-02-02] MEDS: HALOPERIDOL 5 MG TABLET PO PRN (02:50)
[2020-02-02] MEDS: RisperiDONE 2 MG TABLET PO SCH (08:39)
[2020-02-02] MEDS: OMEGA-3/DHA/EPA/FISH OIL 1,000 MG CAPSULE PO SCH (08:39)
[2020-02-02] MEDS: NICOTINE 14 MG/24 HOUR PATCH TD SCH (08:40)
[2020-02-02 09:05] VITALS: BP 91/49
[2020-02-02 13:14] VITALS: BP 128/70
[2020-02-02] MEDS: LORazepam 2 MG TABLET PO PRN ×2 (13:16→18:04)
[2020-02-02 16:26] VITALS: BP 104/65
[2020-02-02] MEDS: RisperiDONE 4 MG TABLET PO SCH (20:41)
[2020-02-03 00:56] VITALS: BP 122/70
[2020-02-03 08:37] VITALS: BP 99/55
[2020-02-03] MEDS: OMEGA-3/DHA/EPA/FISH OIL 1,000 MG CAPSULE PO SCH (08:39)
[2020-02-03] MEDS: NICOTINE 14 MG/24 HOUR PATCH TD SCH (08:39)
[2020-02-03] MEDS: RisperiDONE 2 MG TABLET PO SCH (08:39)
[2020-02-03] MEDS: LORazepam 2 MG TABLET PO PRN ×3 (12:17→20:37)
[2020-02-03 12:32] VITALS: BP 132/84
[2020-02-03 16:09] VITALS: BP 102/84
[2020-02-03] MEDS: RisperiDONE 4 MG TABLET PO SCH (20:37)
[2020-02-04 06:47] VITALS: BP 100/65
[2020-02-04 08:26] VITALS: BP 110/72
[2020-02-04] MEDS: RisperiDONE 2 MG TABLET PO SCH (09:00)
[2020-02-04] MEDS: OMEGA-3/DHA/EPA/FISH OIL 1,000 MG CAPSULE PO SCH (09:00)
[2020-02-04] MEDS: NICOTINE 14 MG/24 HOUR PATCH TD SCH (09:05)
[2020-02-04] MEDS: LORazepam 2 MG TABLET PO PRN ×2 (10:12→16:21)
[2020-02-04 16:11] VITALS: BP 110/64
[2020-02-04] MEDS: RisperiDONE 4 MG TABLET PO SCH (20:29)
[2020-02-04] MEDS: ZOLPIDEM TARTRATE 10 MG TABLET PO PRN (21:51)
[2020-02-05 00:02] VITALS: BP 119/71
[2020-02-05] MEDS: HALOPERIDOL 5 MG TABLET PO PRN (00:07)
[2020-02-05] MEDS: LORazepam 2 MG TABLET PO PRN ×3 (00:07→15:42)
[2020-02-05 08:20] VITALS: BP 110/68
[2020-02-05] MEDS: RisperiDONE 2 MG TABLET PO SCH (08:55)
[2020-02-05] MEDS: OMEGA-3/DHA/EPA/FISH OIL 1,000 MG CAPSULE PO SCH (08:55)
[2020-02-05] MEDS: NICOTINE 14 MG/24 HOUR PATCH TD SCH (09:26)
[2020-02-05 16:37] VITALS: BP 109/68
[2020-02-05] MEDS: RisperiDONE 4 MG TABLET PO SCH (20:35)
[2020-02-05] MEDS: ZOLPIDEM TARTRATE 10 MG TABLET PO PRN (22:30)
[2020-02-06 00:08] VITALS: BP 117/74
[2020-02-06] MEDS: RisperiDONE 2 MG TABLET PO SCH (08:21)
[2020-02-06 08:35] VITALS: BP 106/61
[2020-02-06] MEDS: NICOTINE 14 MG/24 HOUR PATCH TD SCH (09:00)
[2020-02-06] MEDS: OMEGA-3/DHA/EPA/FISH OIL 1,000 MG CAPSULE PO SCH (09:55)
[2020-02-06] MEDS: LORazepam 2 MG TABLET PO PRN ×2 (11:25→20:06)
[2020-02-06 16:12] VITALS: BP 119/82
[2020-02-06] MEDS: RisperiDONE 4 MG TABLET PO SCH (20:33)
[2020-02-07 00:10] VITALS: BP 122/78
[2020-02-07] MEDS: LORazepam 2 MG TABLET PO PRN (06:38)
[2020-02-07] MEDS: RisperiDONE 2 MG TABLET PO SCH (08:18)
[2020-02-07] MEDS: OMEGA-3/DHA/EPA/FISH OIL 1,000 MG CAPSULE PO SCH (08:18)
[2020-02-07] MEDS: NICOTINE 14 MG/24 HOUR PATCH TD SCH (08:18)
[2020-02-07 08:27] VITALS: BP 122/77
[2020-02-07 16:35] VITALS: BP 119/78
[2020-02-07] MEDS: RisperiDONE 4 MG TABLET PO SCH (20:42)
[2020-02-08 00:08] VITALS: BP 121/73
[2020-02-08] MEDS: ZOLPIDEM TARTRATE 10 MG TABLET PO PRN ×2 (01:32→22:19)
[2020-02-08] MEDS: NICOTINE 14 MG/24 HOUR PATCH TD SCH (08:12)
[2020-02-08] MEDS: RisperiDONE 2 MG TABLET PO SCH (08:12)
[2020-02-08] MEDS: OMEGA-3/DHA/EPA/FISH OIL 1,000 MG CAPSULE PO SCH (08:12)
[2020-02-08 08:17] VITALS: BP 114/84
[2020-02-08] MEDS ORDERED: TUBERCULIN, PURIFIED PROTEIN DERIVATIVE 5 TU/0.1 ML SYRINGE ID ONE (09:00)
[2020-02-08 16:24] VITALS: BP 133/77
[2020-02-08] MEDS: RisperiDONE 4 MG TABLET PO SCH (21:14)
[2020-02-09 00:53] VITALS: BP 106/60
[2020-02-09 08:33] VITALS: BP 112/77
[2020-02-09] MEDS: OMEGA-3/DHA/EPA/FISH OIL 1,000 MG CAPSULE PO SCH (08:34)
[2020-02-09] MEDS: RisperiDONE 2 MG TABLET PO SCH (08:34)
[2020-02-09] MEDS: NICOTINE 14 MG/24 HOUR PATCH TD SCH (08:38)
[2020-02-09 16:05] VITALS: BP 133/82
[2020-02-09] MEDS: RisperiDONE 4 MG TABLET PO SCH (20:33)
[2020-02-09] MEDS: ZOLPIDEM TARTRATE 10 MG TABLET PO PRN (20:46)
[2020-02-10 04:36] VITALS: BP 121/79
[2020-02-10] MEDS: OMEGA-3/DHA/EPA/FISH OIL 1,000 MG CAPSULE PO SCH (08:13)
[2020-02-10] MEDS: RisperiDONE 2 MG TABLET PO SCH (08:13)
[2020-02-10] MEDS: NICOTINE 14 MG/24 HOUR PATCH TD SCH (08:14)
[2020-02-10 09:30] VITALS: BP 122/79
[2020-02-10 10:02] VITALS: BP 125/82
[2020-02-10] MEDS: IBUPROFEN 400 MG TABLET PO PRN ×2 (10:02→20:51)
[2020-02-10 16:00] VITALS: BP 130/90
[2020-02-10] MEDS: RisperiDONE 4 MG TABLET PO SCH (20:36)
[2020-02-10 20:49] VITALS: BP 128/84
[2020-02-11 00:11] VITALS: BP 122/78
[2020-02-11] MEDS: RisperiDONE 2 MG TABLET PO SCH (08:05)
[2020-02-11] MEDS: OMEGA-3/DHA/EPA/FISH OIL 1,000 MG CAPSULE PO SCH (08:05)
[2020-02-11] MEDS: NICOTINE 14 MG/24 HOUR PATCH TD SCH (08:08)
[2020-02-11 08:09] VITALS: BP 109/65
[2020-02-11] MEDS: IBUPROFEN 400 MG TABLET PO PRN ×2 (10:44→22:41)
[2020-02-11] MEDS: LORazepam 2 MG TABLET PO PRN (10:46)
[2020-02-11 16:19] VITALS: BP 134/70
[2020-02-11] MEDS: RisperiDONE 4 MG TABLET PO SCH (20:08)
[2020-02-11 22:41] VITALS: BP 122/75
[2020-02-12 00:10] VITALS: BP 121/75
[2020-02-12 08:39] VITALS: BP 107/62
[2020-02-12] MEDS: OMEGA-3/DHA/EPA/FISH OIL 1,000 MG CAPSULE PO SCH (08:42)
[2020-02-12] MEDS: RisperiDONE 2 MG TABLET PO SCH (08:42)
[2020-02-12] MEDS: NICOTINE 14 MG/24 HOUR PATCH TD SCH (08:51)
[2020-02-12 11:23] VITALS: BP 117/73
[2020-02-12] MEDS: IBUPROFEN 400 MG TABLET PO PRN (11:23)
[2020-02-12] MEDS: LORazepam 2 MG TABLET PO PRN (11:23)
[2020-02-12 17:16] VITALS: BP 130/79
[2020-02-12] MEDS: RisperiDONE 4 MG TABLET PO SCH (20:32)
[2020-02-13 00:42] VITALS: BP 110/63
[2020-02-13] MEDS: IBUPROFEN 400 MG TABLET PO PRN ×2 (08:11→19:13)
[2020-02-13] MEDS: OMEGA-3/DHA/EPA/FISH OIL 1,000 MG CAPSULE PO SCH (08:11)
[2020-02-13] MEDS: NICOTINE 14 MG/24 HOUR PATCH TD SCH (08:14)
[2020-02-13 08:17] VITALS: BP 113/63
[2020-02-13] MEDS: RisperiDONE 2 MG TABLET PO SCH (08:18)
[2020-02-13 16:10] VITALS: BP 107/68
[2020-02-13] MEDS: LORazepam 2 MG TABLET PO PRN (20:22)
[2020-02-13] MEDS: RisperiDONE 4 MG TABLET PO SCH (20:22)
[2020-02-14 00:10] VITALS: BP 132/73
[2020-02-14 03:08] VITALS: BP 128/76
[2020-02-14 08:12] VITALS: BP 106/65
[2020-02-14] MEDS: OMEGA-3/DHA/EPA/FISH OIL 1,000 MG CAPSULE PO SCH (08:12)
[2020-02-14] MEDS: RisperiDONE 2 MG TABLET PO SCH (08:12)
[2020-02-14] MEDS: NICOTINE 14 MG/24 HOUR PATCH TD SCH (08:15)
[2020-02-14 10:40] VITALS: BP 125/75
[2020-02-14] MEDS: IBUPROFEN 400 MG TABLET PO PRN ×2 (10:40→19:29)
[2020-02-14 16:05] VITALS: BP 121/78
[2020-02-14 19:27] VITALS: BP 125/82
[2020-02-14] MEDS: RisperiDONE 4 MG TABLET PO SCH (20:37)
[2020-02-15 00:20] VITALS: BP 125/75
[2020-02-15 08:08] VITALS: BP 107/68
[2020-02-15] MEDS: RisperiDONE 2 MG TABLET PO SCH (08:09)
[2020-02-15] MEDS: OMEGA-3/DHA/EPA/FISH OIL 1,000 MG CAPSULE PO SCH (08:09)
[2020-02-15] MEDS: NICOTINE 14 MG/24 HOUR PATCH TD SCH (08:10)
[2020-02-15] MEDS: IBUPROFEN 400 MG TABLET PO PRN (09:04)
[2020-02-15 09:05] VITALS: BP 112/78
[2020-02-15 16:16] VITALS: BP 109/68
[2020-02-15] MEDS: RisperiDONE 4 MG TABLET PO SCH (20:32)
[2020-02-16 04:20] VITALS: BP 110/72
[2020-02-16 08:22] VITALS: BP 126/74
[2020-02-16] MEDS: OMEGA-3/DHA/EPA/FISH OIL 1,000 MG CAPSULE PO SCH (08:29)
[2020-02-16] MEDS: RisperiDONE 2 MG TABLET PO SCH (08:29)
[2020-02-16] MEDS: NICOTINE 14 MG/24 HOUR PATCH TD SCH (08:29)
[2020-02-16] MEDS: LORazepam 2 MG TABLET PO PRN (15:46)
[2020-02-16 16:14] VITALS: BP 130/84
[2020-02-16] MEDS: IBUPROFEN 400 MG TABLET PO PRN (19:05)
[2020-02-16 19:06] VITALS: BP 119/78
[2020-02-16] MEDS: RisperiDONE 4 MG TABLET PO SCH (20:38)
[2020-02-17 05:53] VITALS: BP 125/74
[2020-02-17 08:19] VITALS: BP 126/92
[2020-02-17] MEDS: RisperiDONE 2 MG TABLET PO SCH (08:33)
[2020-02-17] MEDS: OMEGA-3/DHA/EPA/FISH OIL 1,000 MG CAPSULE PO SCH (08:33)
[2020-02-17] MEDS: NICOTINE 14 MG/24 HOUR PATCH TD SCH (08:34)
[2020-02-17] MEDS: LORazepam 2 MG TABLET PO PRN ×2 (10:22→17:19)
[2020-02-17 16:31] VITALS: BP 127/82
[2020-02-17] MEDS: RisperiDONE 4 MG TABLET PO SCH (20:14)
[2020-02-18 00:40] VITALS: BP 125/66
[2020-02-18] MEDS: OMEGA-3/DHA/EPA/FISH OIL 1,000 MG CAPSULE PO SCH (08:10)
[2020-02-18] MEDS: RisperiDONE 2 MG TABLET PO SCH (08:10)
[2020-02-18] MEDS: NICOTINE 14 MG/24 HOUR PATCH TD SCH (08:11)
[2020-02-18 08:40] VITALS: BP 118/61
[2020-02-18] MEDS: LORazepam 2 MG TABLET PO PRN (15:54)
[2020-02-18 16:15] VITALS: BP 125/79
[2020-02-18] MEDS: IBUPROFEN 400 MG TABLET PO PRN (16:17)
[2020-02-18] MEDS: RisperiDONE 4 MG TABLET PO SCH (20:32)
[2020-02-19 00:20] VITALS: BP 122/80
[2020-02-19] MEDS: RisperiDONE 2 MG TABLET PO SCH (08:10)
[2020-02-19] MEDS: OMEGA-3/DHA/EPA/FISH OIL 1,000 MG CAPSULE PO SCH (08:10)
[2020-02-19] MEDS: NICOTINE 14 MG/24 HOUR PATCH TD SCH (08:11)
[2020-02-19 08:27] VITALS: BP 108/67
[2020-02-19] MEDS: LORazepam 2 MG TABLET PO PRN (15:51)
[2020-02-19 16:08] VITALS: BP 129/85
[2020-02-19] MEDS: RisperiDONE 4 MG TABLET PO SCH (20:33)
[2020-02-20 00:05] VITALS: BP 112/63
[2020-02-20 08:08] VITALS: BP 112/62
[2020-02-20] MEDS: NICOTINE 14 MG/24 HOUR PATCH TD SCH (08:34)
[2020-02-20] MEDS: RisperiDONE 2 MG TABLET PO SCH (08:34)
[2020-02-20] MEDS: OMEGA-3/DHA/EPA/FISH OIL 1,000 MG CAPSULE PO SCH (08:34)
[2020-02-20] MEDS: LORazepam 2 MG TABLET PO PRN (10:11)
[2020-02-20] MEDS ORDERED: FLUCONAZOLE 150 MG TABLET PO ONE (15:30)
[2020-02-20 16:20] VITALS: BP 132/80
[2020-02-20] MEDS: RisperiDONE 4 MG TABLET PO SCH (20:36)
[2020-02-21 00:35] VITALS: BP 119/67
[2020-02-21] MEDS: OMEGA-3/DHA/EPA/FISH OIL 1,000 MG CAPSULE PO SCH (08:14)
[2020-02-21] MEDS: RisperiDONE 4 MG TABLET PO SCH ×2 (08:18→20:31)
[2020-02-21] MEDS: NICOTINE 14 MG/24 HOUR PATCH TD SCH (08:19)
[2020-02-21 08:29] VITALS: BP 106/62
[2020-02-21 16:04] VITALS: BP 102/64
[2020-02-21] MEDS: LORazepam 2 MG TABLET PO PRN (18:56)
[2020-02-22 00:30] VITALS: BP 110/73
[2020-02-22 08:23] VITALS: BP 115/70
[2020-02-22] MEDS: RisperiDONE 4 MG TABLET PO SCH ×2 (08:33→20:31)
[2020-02-22] MEDS: OMEGA-3/DHA/EPA/FISH OIL 1,000 MG CAPSULE PO SCH (08:34)
[2020-02-22] MEDS: NICOTINE 14 MG/24 HOUR PATCH TD SCH (08:34)
[2020-02-22] MEDS: LORazepam 2 MG TABLET PO PRN (13:36)
[2020-02-22 16:05] VITALS: BP 113/67
[2020-02-23 06:11] VITALS: BP 104/62
[2020-02-23 08:15] VITALS: BP 110/71
[2020-02-23] MEDS: RisperiDONE 4 MG TABLET PO SCH ×2 (08:16→20:39)
[2020-02-23] MEDS: OMEGA-3/DHA/EPA/FISH OIL 1,000 MG CAPSULE PO SCH (08:17)
[2020-02-23] MEDS: NICOTINE 14 MG/24 HOUR PATCH TD SCH (08:18)
[2020-02-23] MEDS: LORazepam 2 MG TABLET PO PRN (09:51)
[2020-02-23 16:04] VITALS: BP 117/84
[2020-02-24 00:42] VITALS: BP 103/63
[2020-02-24 08:35] VITALS: BP 101/69
[2020-02-24] MEDS: NICOTINE 14 MG/24 HOUR PATCH TD SCH (08:38)
[2020-02-24] MEDS: RisperiDONE 4 MG TABLET PO SCH ×2 (08:38→20:34)
[2020-02-24] MEDS: OMEGA-3/DHA/EPA/FISH OIL 1,000 MG CAPSULE PO SCH (08:38)
[2020-02-24] MEDS: LORazepam 2 MG TABLET PO PRN ×2 (09:02→18:36)
[2020-02-24 16:30] VITALS: BP 107/68
[2020-02-24] MEDS: ZOLPIDEM TARTRATE 10 MG TABLET PO PRN (20:51)
[2020-02-25 00:50] VITALS: BP 110/70
[2020-02-25] MEDS: LORazepam 2 MG TABLET PO PRN ×3 (08:06→20:27)
[2020-02-25] MEDS: OMEGA-3/DHA/EPA/FISH OIL 1,000 MG CAPSULE PO SCH (08:06)
[2020-02-25] MEDS: RisperiDONE 4 MG TABLET PO SCH ×2 (08:06→20:27)
[2020-02-25] MEDS: NICOTINE 14 MG/24 HOUR PATCH TD SCH (08:08)
[2020-02-25 08:27] VITALS: BP 121/70
[2020-02-25 16:04] VITALS: BP 137/73
[2020-02-26 04:12] VITALS: BP 121/68
[2020-02-26 08:24] VITALS: BP 125/84
[2020-02-26] MEDS: NICOTINE 14 MG/24 HOUR PATCH TD SCH (09:19)
[2020-02-26] MEDS: OMEGA-3/DHA/EPA/FISH OIL 1,000 MG CAPSULE PO SCH (09:19)
[2020-02-26] MEDS: RisperiDONE 4 MG TABLET PO SCH ×2 (09:19→20:12)
[2020-02-26] MEDS: LORazepam 2 MG TABLET PO PRN ×2 (12:16→18:02)
[2020-02-26 16:05] VITALS: BP 111/73
[2020-02-27 00:41] VITALS: BP 104/62
[2020-02-27 08:17] VITALS: BP 136/92
[2020-02-27] MEDS: OMEGA-3/DHA/EPA/FISH OIL 1,000 MG CAPSULE PO SCH (08:44)
[2020-02-27] MEDS: RisperiDONE 4 MG TABLET PO SCH ×2 (08:44→20:40)
[2020-02-27] MEDS: NICOTINE 14 MG/24 HOUR PATCH TD SCH (08:45)
[2020-02-27] MEDS: LORazepam 2 MG TABLET PO PRN ×2 (11:57→18:37)
[2020-02-27 16:13] VITALS: BP 117/81
[2020-02-28 00:31] VITALS: BP 114/78
[2020-02-28] MEDS: OMEGA-3/DHA/EPA/FISH OIL 1,000 MG CAPSULE PO SCH (08:13)
[2020-02-28] MEDS: RisperiDONE 4 MG TABLET PO SCH ×2 (08:13→20:31)
[2020-02-28] MEDS: NICOTINE 14 MG/24 HOUR PATCH TD SCH (08:13)
[2020-02-28 08:34] VITALS: BP 111/75
[2020-02-28] MEDS: LORazepam 2 MG TABLET PO PRN ×2 (10:10→18:58)
[2020-02-28 16:05] VITALS: BP 120/86
[2020-02-29 00:08] VITALS: BP 121/82
[2020-02-29 08:05] VITALS: BP 106/79
[2020-02-29] MEDS: OMEGA-3/DHA/EPA/FISH OIL 1,000 MG CAPSULE PO SCH (08:51)
[2020-02-29] MEDS: RisperiDONE 4 MG TABLET PO SCH ×2 (08:51→20:56)
[2020-02-29] MEDS: LORazepam 2 MG TABLET PO PRN ×3 (08:51→21:46)
[2020-02-29] MEDS: NICOTINE 14 MG/24 HOUR PATCH TD SCH (08:52)
[2020-02-29 16:20] VITALS: BP_SYST 113
[2020-03-01] MEDS: LORazepam 2 MG TABLET PO PRN (06:26)
[2020-03-01] MEDS: OMEGA-3/DHA/EPA/FISH OIL 1,000 MG CAPSULE PO SCH (08:11)
[2020-03-01] MEDS: RisperiDONE 4 MG TABLET PO SCH ×2 (08:11→20:35)
[2020-03-01] MEDS: NICOTINE 14 MG/24 HOUR PATCH TD SCH (08:13)
[2020-03-01 08:38] VITALS: BP 109/74
[2020-03-01 16:05] VITALS: BP 108/68
[2020-03-02 05:37] VITALS: BP 106/72
[2020-03-02] MEDS: OMEGA-3/DHA/EPA/FISH OIL 1,000 MG CAPSULE PO SCH (08:36)
[2020-03-02] MEDS: RisperiDONE 4 MG TABLET PO SCH ×2 (08:36→20:57)
[2020-03-02] MEDS: LORazepam 2 MG TABLET PO PRN ×3 (08:37→17:42)
[2020-03-02] MEDS: NICOTINE 14 MG/24 HOUR PATCH TD SCH (08:37)
[2020-03-02 08:44] VITALS: BP 100/63
[2020-03-02 16:40] VITALS: BP 113/74
[2020-03-03 05:26] VITALS: BP 111/63
[2020-03-03] MEDS: OMEGA-3/DHA/EPA/FISH OIL 1,000 MG CAPSULE PO SCH (08:18)
[2020-03-03] MEDS: RisperiDONE 4 MG TABLET PO SCH (08:18)
[2020-03-03] MEDS: NICOTINE 14 MG/24 HOUR PATCH TD SCH (08:19)
[2020-03-03 08:32] VITALS: BP 112/73
[2020-03-03] MEDS: LORazepam 2 MG TABLET PO PRN (09:02)
[2020-03-03 16:42] VITALS: BP 122/84
[2020-03-03] MEDS: RisperiDONE CONC 4 MG/4 ML SOLUTION ORAL.SYG PO SCH (20:28)
[2020-03-04 05:10] VITALS: BP 118/79
[2020-03-04 08:09] VITALS: BP 108/68
[2020-03-04] MEDS: NICOTINE 14 MG/24 HOUR PATCH TD SCH (08:47)
[2020-03-04] MEDS: OMEGA-3/DHA/EPA/FISH OIL 1,000 MG CAPSULE PO SCH (08:47)
[2020-03-04] MEDS: RisperiDONE CONC 4 MG/4 ML SOLUTION ORAL.SYG PO SCH ×2 (08:47→20:31)
[2020-03-04] MEDS: LORazepam 1 MG TABLET PO PRN ×2 (12:34→17:32)
[2020-03-04 16:30] VITALS: BP 101/76
[2020-03-05 01:08] VITALS: BP 100/72
[2020-03-05] MEDS: OMEGA-3/DHA/EPA/FISH OIL 1,000 MG CAPSULE PO SCH (08:47)
[2020-03-05] MEDS: NICOTINE 14 MG/24 HOUR PATCH TD SCH (08:50)
[2020-03-05] MEDS: RisperiDONE CONC 4 MG/4 ML SOLUTION ORAL.SYG PO SCH ×2 (08:50→20:29)
[2020-03-05 08:59] VITALS: BP 105/62
[2020-03-05 16:07] VITALS: BP 111/73
[2020-03-06 04:20] VITALS: BP 120/78
[2020-03-06] MEDS: OMEGA-3/DHA/EPA/FISH OIL 1,000 MG CAPSULE PO SCH (08:16)
[2020-03-06] MEDS: RisperiDONE CONC 4 MG/4 ML SOLUTION ORAL.SYG PO SCH ×2 (08:16→20:33)
[2020-03-06] MEDS: NICOTINE 14 MG/24 HOUR PATCH TD SCH (08:17)
[2020-03-06 09:08] VITALS: BP 111/69
[2020-03-06 16:04] VITALS: BP 118/68
[2020-03-06] MEDS: LORazepam 1 MG TABLET PO PRN (16:54)
[2020-03-07 00:33] VITALS: BP 102/64
[2020-03-07 08:02] VITALS: BP 100/59
[2020-03-07] MEDS: RisperiDONE CONC 4 MG/4 ML SOLUTION ORAL.SYG PO SCH ×2 (08:10→20:21)
[2020-03-07] MEDS: NICOTINE 14 MG/24 HOUR PATCH TD SCH (08:11)
[2020-03-07] MEDS: OMEGA-3/DHA/EPA/FISH OIL 1,000 MG CAPSULE PO SCH (08:11)
[2020-03-07] MEDS: LORazepam 1 MG TABLET PO PRN ×2 (12:35→18:11)
[2020-03-07 16:07] VITALS: BP 100/70
[2020-03-08 04:36] VITALS: BP 105/120
[2020-03-08 08:12] VITALS: BP 108/62
[2020-03-08] MEDS: OMEGA-3/DHA/EPA/FISH OIL 1,000 MG CAPSULE PO SCH (08:46)
[2020-03-08] MEDS: RisperiDONE CONC 4 MG/4 ML SOLUTION ORAL.SYG PO SCH ×2 (08:47→20:47)
[2020-03-08] MEDS: NICOTINE 14 MG/24 HOUR PATCH TD SCH (08:47)
[2020-03-08] MEDS: LORazepam 1 MG TABLET PO PRN ×3 (09:06→20:54)
[2020-03-08 16:15] VITALS: BP 106/68
[2020-03-09 00:05] VITALS: BP 107/61
[2020-03-09] MEDS: OMEGA-3/DHA/EPA/FISH OIL 1,000 MG CAPSULE PO SCH (08:25)
[2020-03-09] MEDS: RisperiDONE CONC 4 MG/4 ML SOLUTION ORAL.SYG PO SCH ×2 (08:26→20:39)
[2020-03-09] MEDS: NICOTINE 14 MG/24 HOUR PATCH TD SCH (08:26)
[2020-03-09] MEDS: LORazepam 1 MG TABLET PO PRN (08:27)
[2020-03-09 08:41] VITALS: BP 101/70
[2020-03-09 16:09] VITALS: BP 108/68
[2020-03-10 01:05] VITALS: BP 110/71
[2020-03-10] MEDS: OMEGA-3/DHA/EPA/FISH OIL 1,000 MG CAPSULE PO SCH (08:16)
[2020-03-10] MEDS: RisperiDONE CONC 4 MG/4 ML SOLUTION ORAL.SYG PO SCH ×2 (08:16→20:03)
[2020-03-10] MEDS: NICOTINE 14 MG/24 HOUR PATCH TD SCH (08:16)
[2020-03-10] MEDS: LORazepam 1 MG TABLET PO PRN (08:18)
[2020-03-10 08:23] VITALS: BP 96/70
[2020-03-10 16:22] VITALS: BP 107/60
[2020-03-10] MEDS: ZOLPIDEM TARTRATE 10 MG TABLET PO PRN (22:42)
[2020-03-11 01:22] VITALS: BP 104/63
[2020-03-11] MEDS: RisperiDONE CONC 4 MG/4 ML SOLUTION ORAL.SYG PO SCH ×2 (08:04→20:06)
[2020-03-11] MEDS: LORazepam 1 MG TABLET PO PRN (08:05)
[2020-03-11] MEDS: OMEGA-3/DHA/EPA/FISH OIL 1,000 MG CAPSULE PO SCH (08:05)
[2020-03-11 08:14] VITALS: BP 140/62
[2020-03-11] MEDS: NICOTINE 14 MG/24 HOUR PATCH TD SCH (08:26)
[2020-03-11 16:14] VITALS: BP 117/69
[2020-03-12 06:26] VITALS: BP 97/52
[2020-03-12 08:13] VITALS: BP 133/80
[2020-03-12] MEDS: RisperiDONE CONC 4 MG/4 ML SOLUTION ORAL.SYG PO SCH ×2 (09:47→20:39)
[2020-03-12] MEDS: OMEGA-3/DHA/EPA/FISH OIL 1,000 MG CAPSULE PO SCH (09:47)
[2020-03-12] MEDS: NICOTINE 14 MG/24 HOUR PATCH TD SCH (09:47)
[2020-03-12 16:12] VITALS: BP 120/80
[2020-03-12] MEDS: ZOLPIDEM TARTRATE 10 MG TABLET PO PRN (22:43)
[2020-03-13 00:08] VITALS: BP 118/79
[2020-03-13 08:07] VITALS: BP 120/70
[2020-03-13] MEDS: OMEGA-3/DHA/EPA/FISH OIL 1,000 MG CAPSULE PO SCH (08:10)
[2020-03-13] MEDS: LORazepam 1 MG TABLET PO PRN ×2 (08:10→14:09)
[2020-03-13] MEDS: RisperiDONE CONC 4 MG/4 ML SOLUTION ORAL.SYG PO SCH ×2 (08:11→20:30)
[2020-03-13] MEDS: NICOTINE 14 MG/24 HOUR PATCH TD SCH (08:11)
[2020-03-13 16:19] VITALS: BP 109/62
[2020-03-14 00:02] VITALS: BP 112/79
[2020-03-14] MEDS: RisperiDONE CONC 4 MG/4 ML SOLUTION ORAL.SYG PO SCH ×2 (08:22→20:37)
[2020-03-14] MEDS: NICOTINE 14 MG/24 HOUR PATCH TD SCH (08:23)
[2020-03-14] MEDS: OMEGA-3/DHA/EPA/FISH OIL 1,000 MG CAPSULE PO SCH (08:23)
[2020-03-14] MEDS: LORazepam 1 MG TABLET PO PRN ×2 (08:24→14:10)
[2020-03-14 08:36] VITALS: BP 113/75
[2020-03-14 16:11] VITALS: BP 117/68
[2020-03-15 08:09] VITALS: BP 104/65
[2020-03-15] MEDS: RisperiDONE CONC 4 MG/4 ML SOLUTION ORAL.SYG PO SCH ×2 (08:22→20:35)
[2020-03-15] MEDS: NICOTINE 14 MG/24 HOUR PATCH TD SCH (08:22)
[2020-03-15] MEDS: OMEGA-3/DHA/EPA/FISH OIL 1,000 MG CAPSULE PO SCH (09:06)
[2020-03-15] MEDS: LORazepam 1 MG TABLET PO PRN ×2 (09:16→20:02)
[2020-03-15] MEDS ORDERED: PALIPERIDONE PALMITATE 234 MG/1.5 ML SYRINGE IM ONE (16:00)
[2020-03-15 16:12] VITALS: BP 119/69
[2020-03-16 05:14] VITALS: BP 115/76
[2020-03-16] MEDS: RisperiDONE CONC 4 MG/4 ML SOLUTION ORAL.SYG PO SCH ×2 (08:31→20:22)
[2020-03-16] MEDS: OMEGA-3/DHA/EPA/FISH OIL 1,000 MG CAPSULE PO SCH (08:31)
[2020-03-16] MEDS: NICOTINE 14 MG/24 HOUR PATCH TD SCH (08:31)
[2020-03-16 09:10] VITALS: BP 118/74
[2020-03-16] MEDS: LORazepam 1 MG TABLET PO PRN ×2 (09:26→14:29)
[2020-03-16 16:14] VITALS: BP 100/65
[2020-03-17 00:32] VITALS: BP 102/63
[2020-03-17 08:07] VITALS: BP 122/74
[2020-03-17] MEDS: OMEGA-3/DHA/EPA/FISH OIL 1,000 MG CAPSULE PO SCH (08:24)
[2020-03-17] MEDS: RisperiDONE CONC 4 MG/4 ML SOLUTION ORAL.SYG PO SCH ×2 (08:25→20:35)
[2020-03-17] MEDS: NICOTINE 14 MG/24 HOUR PATCH TD SCH (08:25)
[2020-03-17] MEDS: LORazepam 1 MG TABLET PO PRN ×3 (09:04→21:05)
[2020-03-17 16:11] VITALS: BP 112/93
[2020-03-18 06:06] VITALS: BP 99/69
[2020-03-18 08:03] VITALS: BP 104/64
[2020-03-18] MEDS: NICOTINE 14 MG/24 HOUR PATCH TD SCH (08:41)
[2020-03-18] MEDS: OMEGA-3/DHA/EPA/FISH OIL 1,000 MG CAPSULE PO SCH (08:42)
[2020-03-18] MEDS: RisperiDONE CONC 4 MG/4 ML SOLUTION ORAL.SYG PO SCH ×2 (08:42→20:31)
[2020-03-18] MEDS: LORazepam 1 MG TABLET PO PRN ×2 (10:45→15:55)
[2020-03-18 16:09] VITALS: BP 127/76
[2020-03-19] VITALS: BP 102/65
[2020-03-19 08:07] VITALS: BP 109/64
[2020-03-19] MEDS ORDERED: PALIPERIDONE PALMITATE 156 MG/ML SYRINGE IM ONE (09:00)
[2020-03-19] MEDS: RisperiDONE CONC 4 MG/4 ML SOLUTION ORAL.SYG PO SCH ×2 (10:07→20:36)
[2020-03-19] MEDS: OMEGA-3/DHA/EPA/FISH OIL 1,000 MG CAPSULE PO SCH (10:07)
[2020-03-19] MEDS: NICOTINE 14 MG/24 HOUR PATCH TD SCH (10:08)
[2020-03-19] MEDS: LORazepam 1 MG TABLET PO PRN (15:46)
[2020-03-19 16:15] VITALS: BP 127/72
[2020-03-20 05:44] VITALS: BP 101/64
[2020-03-20] MEDS: RisperiDONE CONC 4 MG/4 ML SOLUTION ORAL.SYG PO SCH ×2 (08:44→20:17)
[2020-03-20] MEDS: NICOTINE 14 MG/24 HOUR PATCH TD SCH (08:44)
[2020-03-20] MEDS: OMEGA-3/DHA/EPA/FISH OIL 1,000 MG CAPSULE PO SCH (08:44)
[2020-03-20 09:00] VITALS: BP 103/53
[2020-03-20] MEDS: LORazepam 1 MG TABLET PO PRN (13:06)
[2020-03-20 16:11] VITALS: BP 110/68
[2020-03-21 06:42] VITALS: BP 104/59
[2020-03-21] MEDS: OMEGA-3/DHA/EPA/FISH OIL 1,000 MG CAPSULE PO SCH (08:38)
[2020-03-21] MEDS: NICOTINE 14 MG/24 HOUR PATCH TD SCH (08:39)
[2020-03-21] MEDS: RisperiDONE CONC 4 MG/4 ML SOLUTION ORAL.SYG PO SCH ×2 (08:39→20:23)
[2020-03-21 09:53] VITALS: BP 134/65
[2020-03-21] MEDS: LORazepam 1 MG TABLET PO PRN ×2 (11:19→18:55)
[2020-03-21 16:11] VITALS: BP 105/61
[2020-03-22 01:27] VITALS: BP 105/67
[2020-03-22] MEDS: NICOTINE 14 MG/24 HOUR PATCH TD SCH (08:02)
[2020-03-22] MEDS: OMEGA-3/DHA/EPA/FISH OIL 1,000 MG CAPSULE PO SCH (08:02)
[2020-03-22] MEDS: RisperiDONE CONC 4 MG/4 ML SOLUTION ORAL.SYG PO SCH ×2 (08:02→20:33)
[2020-03-22 08:08] VITALS: BP 110/64
[2020-03-22] MEDS: LORazepam 1 MG TABLET PO PRN ×2 (10:53→21:18)
[2020-03-22 13:36] VITALS: BP 119/71
[2020-03-22] MEDS: IBUPROFEN 400 MG TABLET PO PRN (13:38)
[2020-03-22 16:04] VITALS: BP 107/65
[2020-03-23 08:14] VITALS: BP 137/83
[2020-03-23] MEDS: OMEGA-3/DHA/EPA/FISH OIL 1,000 MG CAPSULE PO SCH (09:38)
[2020-03-23] MEDS: NICOTINE 14 MG/24 HOUR PATCH TD SCH (09:39)
[2020-03-23] MEDS: RisperiDONE CONC 4 MG/4 ML SOLUTION ORAL.SYG PO SCH ×2 (09:44→20:35)
[2020-03-23 16:03] VITALS: BP 111/69
[2020-03-23 21:20] VITALS: BP 118/71
[2020-03-23] MEDS: LORazepam 1 MG TABLET PO PRN (21:22)
[2020-03-23] MEDS: IBUPROFEN 400 MG TABLET PO PRN (21:22)
[2020-03-24] MEDS: NICOTINE 14 MG/24 HOUR PATCH TD SCH (08:50)
[2020-03-24] MEDS: OMEGA-3/DHA/EPA/FISH OIL 1,000 MG CAPSULE PO SCH (08:50)
[2020-03-24] MEDS: RisperiDONE CONC 4 MG/4 ML SOLUTION ORAL.SYG PO SCH ×2 (08:50→20:54)
[2020-03-24 09:57] VITALS: BP 102/71
[2020-03-24] MEDS: LORazepam 1 MG TABLET PO PRN ×2 (11:10→16:20)
[2020-03-24 16:28] VITALS: BP 130/96
[2020-03-25 06:09] VITALS: BP 101/63
[2020-03-25 08:36] VITALS: BP 105/68
[2020-03-25] MEDS: OMEGA-3/DHA/EPA/FISH OIL 1,000 MG CAPSULE PO SCH (09:58)
[2020-03-25] MEDS: RisperiDONE CONC 4 MG/4 ML SOLUTION ORAL.SYG PO SCH ×2 (10:01→20:43)
[2020-03-25] MEDS: NICOTINE 14 MG/24 HOUR PATCH TD SCH (10:02)
[2020-03-25] MEDS: LORazepam 1 MG TABLET PO PRN ×3 (13:53→23:46)
[2020-03-25 16:05] VITALS: BP 118/78
[2020-03-25] MEDS: ZOLPIDEM TARTRATE 10 MG TABLET PO PRN (23:46)
[2020-03-26 00:16] VITALS: BP 115/73
[2020-03-26 08:22] VITALS: BP 107/64
[2020-03-26] MEDS: NICOTINE 14 MG/24 HOUR PATCH TD SCH (08:36)
[2020-03-26] MEDS: OMEGA-3/DHA/EPA/FISH OIL 1,000 MG CAPSULE PO SCH (08:36)
[2020-03-26] MEDS: RisperiDONE CONC 4 MG/4 ML SOLUTION ORAL.SYG PO SCH ×2 (08:38→20:33)
[2020-03-26 16:08] VITALS: BP 104/61
[2020-03-27 01:09] VITALS: BP 110/72
[2020-03-27 08:04] VITALS: BP 108/80
[2020-03-27] MEDS: RisperiDONE CONC 4 MG/4 ML SOLUTION ORAL.SYG PO SCH ×2 (08:10→20:36)
[2020-03-27] MEDS: OMEGA-3/DHA/EPA/FISH OIL 1,000 MG CAPSULE PO SCH (08:10)
[2020-03-27] MEDS: NICOTINE 14 MG/24 HOUR PATCH TD SCH (08:10)
[2020-03-27 16:04] VITALS: BP 134/82
[2020-03-28 00:06] VITALS: BP 128/79
[2020-03-28] MEDS: LORazepam 1 MG TABLET PO PRN ×3 (00:27→19:18)
[2020-03-28] MEDS: ZOLPIDEM TARTRATE 10 MG TABLET PO PRN (00:27)
[2020-03-28 08:47] VITALS: BP 100/60
[2020-03-28] MEDS: OMEGA-3/DHA/EPA/FISH OIL 1,000 MG CAPSULE PO SCH (09:15)
[2020-03-28] MEDS: RisperiDONE CONC 4 MG/4 ML SOLUTION ORAL.SYG PO SCH ×2 (09:15→20:37)
[2020-03-28] MEDS: NICOTINE 14 MG/24 HOUR PATCH TD SCH (09:15)
[2020-03-28 16:18] VITALS: BP 102/64
[2020-03-29 06:33] VITALS: BP 101/63
[2020-03-29] MEDS: RisperiDONE CONC 4 MG/4 ML SOLUTION ORAL.SYG PO SCH ×2 (09:07→20:45)
[2020-03-29] MEDS: OMEGA-3/DHA/EPA/FISH OIL 1,000 MG CAPSULE PO SCH (09:07)
[2020-03-29] MEDS: NICOTINE 14 MG/24 HOUR PATCH TD SCH (09:07)
[2020-03-29 09:10] VITALS: BP 108/72
[2020-03-29] MEDS: LORazepam 1 MG TABLET PO PRN ×2 (14:01→18:50)
[2020-03-29] MEDS: GABAPENTIN 100 MG CAPSULE PO SCH ×2 (14:01→16:31)
[2020-03-29 16:11] VITALS: BP 112/69
[2020-03-30 06:07] VITALS: BP 118/60
[2020-03-30 08:49] VITALS: BP 103/70
[2020-03-30] MEDS: RisperiDONE CONC 4 MG/4 ML SOLUTION ORAL.SYG PO SCH ×2 (09:32→20:51)
[2020-03-30] MEDS: OMEGA-3/DHA/EPA/FISH OIL 1,000 MG CAPSULE PO SCH (09:32)
[2020-03-30] MEDS: GABAPENTIN 100 MG CAPSULE PO SCH ×3 (09:32→16:27)
[2020-03-30] MEDS: NICOTINE 14 MG/24 HOUR PATCH TD SCH (09:33)
[2020-03-30] MEDS: LORazepam 1 MG TABLET PO PRN ×2 (09:53→16:04)
[2020-03-30 16:08] VITALS: BP 122/81
[2020-03-31 00:10] VITALS: BP 119/73
[2020-03-31 08:13] VITALS: BP 107/64
[2020-03-31] MEDS: NICOTINE 14 MG/24 HOUR PATCH TD SCH (08:15)
[2020-03-31] MEDS: RisperiDONE CONC 4 MG/4 ML SOLUTION ORAL.SYG PO SCH ×2 (08:16→20:30)
[2020-03-31] MEDS: OMEGA-3/DHA/EPA/FISH OIL 1,000 MG CAPSULE PO SCH (08:16)
[2020-03-31] MEDS: GABAPENTIN 100 MG CAPSULE PO SCH ×3 (08:38→16:37)
[2020-03-31] MEDS: LORazepam 1 MG TABLET PO PRN (11:27)
[2020-03-31 16:05] VITALS: BP 126/82
[2020-04-01] MEDS: HALOPERIDOL 5 MG TABLET PO PRN (04:10)
[2020-04-01] MEDS: LORazepam 1 MG TABLET PO PRN ×3 (04:10→18:06)
[2020-04-01 04:21] VITALS: BP 119/70
[2020-04-01 08:08] VITALS: BP 107/68
[2020-04-01] MEDS: NICOTINE 14 MG/24 HOUR PATCH TD SCH (08:30)
[2020-04-01] MEDS: GABAPENTIN 100 MG CAPSULE PO SCH ×3 (08:30→16:33)
[2020-04-01] MEDS: OMEGA-3/DHA/EPA/FISH OIL 1,000 MG CAPSULE PO SCH (08:30)
[2020-04-01] MEDS: RisperiDONE CONC 4 MG/4 ML SOLUTION ORAL.SYG PO SCH ×2 (08:30→20:31)
[2020-04-01 16:19] VITALS: BP 109/73
[2020-04-02 00:55] VITALS: BP 101/60
[2020-04-02 07:44] LABS: COVID AG,FIA SOURCE NASOPHARYNGEAL
[2020-04-02 08:15] VITALS: BP 109/66
[2020-04-02] MEDS: OMEGA-3/DHA/EPA/FISH OIL 1,000 MG CAPSULE PO SCH (08:53)
[2020-04-02] MEDS: NICOTINE 14 MG/24 HOUR PATCH TD SCH (08:53)
[2020-04-02] MEDS: RisperiDONE CONC 4 MG/4 ML SOLUTION ORAL.SYG PO SCH ×2 (08:53→20:18)
[2020-04-02] MEDS: GABAPENTIN 100 MG CAPSULE PO SCH ×3 (09:21→17:07)
[2020-04-02 16:05] VITALS: BP 111/70
[2020-04-03 05:58] VITALS: BP 100/60
[2020-04-03 08:14] VITALS: BP 106/66
[2020-04-03] MEDS: OMEGA-3/DHA/EPA/FISH OIL 1,000 MG CAPSULE PO SCH (08:41)
[2020-04-03] MEDS: GABAPENTIN 100 MG CAPSULE PO SCH ×3 (08:42→16:31)
[2020-04-03] MEDS: NICOTINE 14 MG/24 HOUR PATCH TD SCH (08:42)
[2020-04-03 16:50] VITALS: BP 107/66
[2020-04-04 06:28] VITALS: BP 110/68
[2020-04-04 08:20] VITALS: BP 118/62
[2020-04-04] MEDS: OMEGA-3/DHA/EPA/FISH OIL 1,000 MG CAPSULE PO SCH (08:39)
[2020-04-04] MEDS: GABAPENTIN 100 MG CAPSULE PO SCH ×3 (08:39→16:30)
[2020-04-04] MEDS: NICOTINE 14 MG/24 HOUR PATCH TD SCH (08:39)
[2020-04-04 16:05] VITALS: BP 113/64
[2020-04-04] MEDS: LORazepam 1 MG TABLET PO PRN (19:02)
[2020-04-05 01:04] VITALS: BP 102/63
[2020-04-05 08:09] VITALS: BP 106/65
[2020-04-05] MEDS: NICOTINE 14 MG/24 HOUR PATCH TD SCH (09:10)
[2020-04-05] MEDS: GABAPENTIN 100 MG CAPSULE PO SCH ×3 (09:11→16:25)
[2020-04-05] MEDS: OMEGA-3/DHA/EPA/FISH OIL 1,000 MG CAPSULE PO SCH (09:11)
[2020-04-05] MEDS: LORazepam 1 MG TABLET PO PRN (10:51)
[2020-04-05 16:19] VITALS: BP 116/65
[2020-04-06 06:42] VITALS: BP 105/70
[2020-04-06 07:57] LABS: COVID AG,FIA SOURCE NASOPHARYNGEAL
[2020-04-06 08:29] VITALS: BP 132/79
[2020-04-06] MEDS: OMEGA-3/DHA/EPA/FISH OIL 1,000 MG CAPSULE PO SCH (08:55)
[2020-04-06] MEDS: GABAPENTIN 100 MG CAPSULE PO SCH ×3 (08:55→17:05)
[2020-04-06] MEDS: NICOTINE 14 MG/24 HOUR PATCH TD SCH (08:56)
[2020-04-06 16:33] VITALS: BP 106/66
[2020-04-07 00:40] VITALS: BP 126/83
[2020-04-07] MEDS: GABAPENTIN 100 MG CAPSULE PO SCH ×3 (09:38→16:32)
[2020-04-07] MEDS: OMEGA-3/DHA/EPA/FISH OIL 1,000 MG CAPSULE PO SCH (09:38)
[2020-04-07] MEDS: NICOTINE 14 MG/24 HOUR PATCH TD SCH (09:39)
[2020-04-07 11:02] VITALS: BP 105/63
[2020-04-07] MEDS: LORazepam 1 MG TABLET PO PRN (13:01)
[2020-04-07 16:05] VITALS: BP 107/69
[2020-04-08 05:52] VITALS: BP 107/61
[2020-04-08] MEDS: GABAPENTIN 100 MG CAPSULE PO SCH ×3 (08:49→16:54)
[2020-04-08] MEDS: NICOTINE 14 MG/24 HOUR PATCH TD SCH (08:49)
[2020-04-08] MEDS: OMEGA-3/DHA/EPA/FISH OIL 1,000 MG CAPSULE PO SCH (08:49)
[2020-04-08 09:11] VITALS: BP 97/62
[2020-04-08] MEDS: HALOPERIDOL 5 MG TABLET PO PRN (15:16)
[2020-04-08] MEDS: LORazepam 1 MG TABLET PO PRN (15:16)
[2020-04-08 16:50] VITALS: BP 102/55
[2020-04-09 06:03] VITALS: BP 99/60
[2020-04-09] MEDS: NICOTINE 14 MG/24 HOUR PATCH TD SCH (08:24)
[2020-04-09] MEDS: OMEGA-3/DHA/EPA/FISH OIL 1,000 MG CAPSULE PO SCH (08:24)
[2020-04-09] MEDS: GABAPENTIN 100 MG CAPSULE PO SCH ×3 (08:24→16:32)
[2020-04-09 08:28] VITALS: BP 135/67
[2020-04-09] MEDS: HALOPERIDOL 5 MG TABLET PO PRN (12:03)
[2020-04-09] MEDS: LORazepam 1 MG TABLET PO PRN (12:03)
[2020-04-09 16:08] VITALS: BP 100/60
[2020-04-09] MEDS ORDERED: INFLUENZA VIRUS VACCINE QVS 2020-21 (6MO+)/PF 60 MCG/0.5 ML SYRINGE IM ONE (19:45)
[2020-04-10 00:41] VITALS: BP 105/62
[2020-04-10 08:04] VITALS: BP 112/73
[2020-04-10] MEDS: OMEGA-3/DHA/EPA/FISH OIL 1,000 MG CAPSULE PO SCH (09:16)
[2020-04-10] MEDS: GABAPENTIN 100 MG CAPSULE PO SCH ×2 (09:16→13:01)
[2020-04-10] MEDS: NICOTINE 14 MG/24 HOUR PATCH TD SCH (09:17)
[2020-04-16] MEDS ORDERED: PALIPERIDONE PALMITATE 234 MG/1.5 ML SYRINGE IM SCH (09:00)
== END 2020-04-10 13:35 | disposition home or self-care (01) | DRG 885 ==
LOC: B2X 23:22
DX: F25.0 Schizoaffective disorder, bipolar type (principal); R45.851 Suicidal ideations; F10.10 Alcohol abuse, uncomplicated; J45.909 Unspecified asthma, uncomplicated; K59.00 Constipation, unspecified; K21.9 Gastro-esophageal reflux disease without esophagitis; F15.10 Other stimulant abuse, uncomplicated; F12.10 Cannabis abuse, uncomplicated; F41.9 Anxiety disorder, unspecified; Z59.0 Homelessness; Z79.899 Other long term (current) drug therapy
CPT/HCPCS: 83036; 84443; 87426; 90686; J3535

== ENCOUNTER 2020-10-23 16:33 | Emergency (ER) | payer MEDICARE, OTHER ==
[~2020-10-23] VITALS: Ht 165.1 cm; Wt 75.0 kg
[2020-10-23 19:44] VITALS: BP 136/73
== END 2020-10-23 19:48 | disposition home or self-care (01) ==
LOC: EMS 16:39
DX: F20.9 Schizophrenia, unspecified (principal); F17.210 Nicotine dependence, cigarettes, uncomplicated
CPT/HCPCS: 99284; Z7502

== ENCOUNTER → 2024-12-02 | Emergency (ER) | payer MEDICARE, OTHER ==
[~2024-12-02] VITALS: Ht 170.2 cm; Wt 101.0 kg
[~2024-12-02] MED LIST changes: +ALBU18HF12 PO; +BENZ-247 PO; +CHLO100T36 PO; +CLON0.1T2 PO; +CLOZ100T11 PO; +CLOZ50TA9 PO; +DOCU100C33 PO; +GABA-1181 PO; +IBUP-2077 PO; +MEDR150V13 IM; +METO-408 PO; +OLAN15TA98 PO; +OMEG100016 PO; -RISP2TAB22 PO; -RISP2TAB23 PO; -RISP4TAB16 PO; -RISP4TAB73 PO; +RISP4TAB94 PO; +VALP250S27 PO
[2024-12-02 19:53] VITALS: BP 138/92; PULSE 101; RESP 16; TEMP 98.1; O2SAT 96
[2024-12-02 20:32] LABS: BASOPHILS % (AUTO) 0.5 % (0.0-2.0); EOSINOPHILS % (AUTO) 0.1 % (1.0-6.0); HEMATOCRIT 38.8 % (36-46); HEMOGLOBIN 12.9 g/dL (12.0-16.0); LYMPHOCYTES # (AUTO) 1.4 K/uL (1.0-4.8); LYMPHOCYTES % (AUTO) 36.6 % (22.0-44.0); MEAN CORPUSCULAR HEMOGLOBIN 29.9 pg (26.0-34.0); MEAN CORPUSCULAR HGB CONC 33.3 G/dL (31.0-37.0); MEAN CORPUSCULAR VOLUME 90 fL (80-100); MONOCYTES # (AUTO) 0.5 K/uL (0.1-1.0); MONOCYTES % (AUTO) 14.2 % (2.0-9.0); NEUTROPHILS # (AUTO) 1.8 K/uL (1.8-7.7); NEUTROPHILS % (AUTO) 48.6 % (40.0-70.0); PLATELET COUNT (AUTO) 206 K/uL (150-450); RED BLOOD CELL COUNT(AUTO) 4.32 MIL/uL (4.00-5.20); RED CELL DISTRIBUTION WIDTH 13.8 % (11.5-14.5); WHITE BLOOD COUNT (AUTO) 3.7 K/uL (4.5-11.0)
[2024-12-02 20:39] LABS: ANION GAP 6 mmol/L (8-16); CALCIUM, TOTAL 8.5 mg/dL (8.8-10.5); CARBON DIOXIDE 29 mmol/L (22-29); CHLORIDE 106 mmol/L (98-107); CREATININE 0.71 mg/dL (0.60-1.30); GLOMERULAR FILTR. RATE CALC > 60 mL/min (>60); GLUCOSE,RANDOM 113 mg/dL (70-110); POTASSIUM 3.9 mmol/L (3.5-5.1); SODIUM SERUM 141 mmol/L (136-145); UREA NITROGEN, BLOOD 9 mg/dL (7-18)
[2024-12-02 21:49] LABS: ALCOHOL, URINE DRUG SCREEN NEGATIVE (NEGATIVE); AMPHET/METH SCREEN,URINE NEGATIVE (NEGATIVE); BARBITURATE SCREEN, URINE NEGATIVE (NEGATIVE); BENZODIAZEPINES SCREEN,URINE NEGATIVE (NEGATIVE); CANNABINOID SCREEN,URINE NEGATIVE (NEGATIVE); COCAINE SCREEN,URINE NEGATIVE (NEGATIVE); METHADONE SCREEN, URINE NEGATIVE (NEGATIVE); OPIATE SCREEN,URINE NEGATIVE (NEGATIVE); PHENCYCLIDINE SCREEN,URINE NEGATIVE (NEGATIVE)
== END ==
LOC: EMS 19:36
DX: Z00.8 Encounter for other general examination (principal); R00.2 Palpitations; J45.909 Unspecified asthma, uncomplicated; F20.9 Schizophrenia, unspecified; Z79.3 Long term (current) use of hormonal contraceptives; Z79.899 Other long term (current) drug therapy
CPT/HCPCS: 99284; 80048; 84703; 85025; 36415; 93005; 80307; G0480